=== PATIENT | male | born 1965 | race Caucasian/White ===

== ENCOUNTER 2017-05-21 20:18 | Inpatient (IN) | payer OTHER ==
[~2017-05-21] VITALS: Ht 190.5 cm; Wt 134.3 kg
[2017-05-21 21:12] LABS: HEMATOCRIT 40.7 % (39.2-51.8); WHITE BLOOD COUNT 13.6 x10^3/uL (3.4-10)
[2017-05-21 21:23] LABS: ASPARTATE AMINO TRANSFERASE 33 U/L (15-37); BLOOD UREA NITROGEN 10 mg/dL (7-18)
[2017-05-21] MEDS ORDERED: ONDANSETRON 2MG/ML, 2ML ONE (22:28)
[2017-05-21] MEDS ORDERED: MORPHINE SULFATE 4 MG/ML, 1ML ONE ×2 (22:28→22:46)
[2017-05-21] MEDS ORDERED: PIPERACILLIN/TAZO/PMX 3.375GM 50 ML ONE (22:29)
[2017-05-21] MEDS ORDERED: MORPHINE SULFATE 4 MG/ML, 1ML IVPush PRN (22:30)
[2017-05-21] MEDS ORDERED: SODIUM CHLORIDE 0.9% 1,000ML IVBOLUS ONE (22:30)
[2017-05-21] MEDS ORDERED: ONDANSETRON 2MG/ML, 2ML IVPush ONE (22:30)
[2017-05-21] MEDS ORDERED: AMPICILLIN/SULBACTAM 3 GM in SODIUM CHLORIDE 0.9% 100 ML IV ONE (22:30)
[2017-05-21] MEDS ORDERED: SODIUM CHLORIDE 0.9% 1,000 ML IV ONE (22:41)
[2017-05-21] MEDS ORDERED: SODIUM CHLORIDE FLUSH 10ML SYR IVF PRN (23:00)
[2017-05-22] MEDS ORDERED: ENALAPRILAT 1.25 MG/ML, 2ML IVPush PRN
[2017-05-22] MEDS ORDERED: ONDANSETRON ODT 4 MG PO PRN
[2017-05-22] MEDS ORDERED: DOCUSATE 100 MG CAPSULE PO PRN
[2017-05-22] MEDS ORDERED: TEMAZEPAM 15 MG CAPSULE PO PRN
[2017-05-22] MEDS ORDERED: morphine SULFATE 10 MG/ML, 1ML IVPush PRN
[2017-05-22 00:07] VITALS: BP 150/89
[2017-05-22 00:08] VITALS: BP 150/89
[2017-05-22] MEDS: HYDROcodone/APAP 5/325 TABLET PO PRN ×4 (01:17→21:21)
[2017-05-22] MEDS: ENOXAPARIN 40 MG/0.4 ML SQ SCH ×2 (01:17→23:38)
[2017-05-22 05:09] LABS: HEMATOCRIT 37.9 % (39.2-51.8); HEMOGLOBIN 12.1 g/dL (13.7-18.0); WHITE BLOOD COUNT 14.4 x10^3/uL (3.4-10)
[2017-05-22 05:30] LABS: BLOOD UREA NITROGEN 9 mg/dL (7-18)
[2017-05-22] MEDS: AMPICILLIN/SULBACTAM 3 GM in SODIUM CHLORIDE 0.9% 100 ML IV SCH ×4 (05:35→23:38)
[2017-05-22] MEDS: SODIUM CHLORIDE 0.9% 1,000 ML IV SCH ×2 (05:36→13:28)
[2017-05-22 05:41] VITALS: BP 133/75
[2017-05-22 07:48] VITALS: BP 125/81
[2017-05-22 13:20] VITALS: BP 114/71
[2017-05-22] MEDS ORDERED: VANCOMYCIN PER PHARMACY MC PRN (17:30)
[2017-05-22] MEDS ORDERED: PHARMACOKINETIC MONITORING MC PRN (18:00)
[2017-05-22 19:30] VITALS: BP 112/71
[2017-05-22] MEDS: VANCOMYCIN 2,000 MG in SODIUM CHLORIDE 0.9% 500 ML IV SCH (21:21)
[2017-05-23 03:15] VITALS: BP 127/75
[2017-05-23] MEDS ORDERED: ACETAMINOPHEN 325 MG TABLET PO PRN (04:30)
[2017-05-23 05:06] LABS: HEMOGLOBIN 11.1 g/dL (13.7-18.0); WHITE BLOOD COUNT 9.7 x10^3/uL (3.4-10)
[2017-05-23] MEDS: AMPICILLIN/SULBACTAM 3 GM in SODIUM CHLORIDE 0.9% 100 ML IV SCH ×4 (06:42→22:59)
[2017-05-23] MEDS: SODIUM CHLORIDE 0.9% 1,000 ML IV SCH ×2 (06:43→22:59)
[2017-05-23] MEDS: HYDROcodone/APAP 5/325 TABLET PO PRN ×3 (08:36→20:19)
[2017-05-23] MEDS ORDERED: ASA/APAP/ CAFFEINE TABLET PO PRN (09:30)
[2017-05-23 09:51] VITALS: BP 127/75
[2017-05-23] MEDS: VANCOMYCIN 2,000 MG in SODIUM CHLORIDE 0.9% 500 ML IV SCH (13:56)
[2017-05-23 15:14] VITALS: BP 107/72
[2017-05-23 19:45] VITALS: BP 122/75
[2017-05-23] MEDS: ENOXAPARIN 40 MG/0.4 ML SQ SCH (22:59)
[2017-05-24] MEDS: AMPICILLIN/SULBACTAM 3 GM in SODIUM CHLORIDE 0.9% 100 ML IV SCH ×3 (05:30→17:46)
[2017-05-24] MEDS: VANCOMYCIN 2,000 MG in SODIUM CHLORIDE 0.9% 500 ML IV SCH (09:32)
[2017-05-24] MEDS: HYDROcodone/APAP 5/325 TABLET PO PRN ×2 (10:27→17:33)
[2017-05-24] MEDS: SODIUM CHLORIDE 0.9% 1,000 ML IV SCH (12:52)
[2017-05-24 13:08] VITALS: BP 110/67
[2017-05-24 20:14] VITALS: BP 128/82
[2017-05-24] MEDS: VANCOMYCIN 1,500 MG in SODIUM CHLORIDE 0.9% 250 ML IV SCH (20:23)
[2017-05-25] MEDS: ENOXAPARIN 40 MG/0.4 ML SQ SCH (00:01)
[2017-05-25] MEDS: AMPICILLIN/SULBACTAM 3 GM in SODIUM CHLORIDE 0.9% 100 ML IV SCH ×4 (00:01→20:40)
[2017-05-25] MEDS: HYDROcodone/APAP 5/325 TABLET PO PRN ×4 (00:02→23:01)
[2017-05-25 00:34] VITALS: BP 137/82
[2017-05-25] MEDS: SODIUM CHLORIDE 0.9% 1,000 ML IV SCH ×2 (02:10→10:00)
[2017-05-25 09:08] VITALS: BP 112/71
[2017-05-25] MEDS: VANCOMYCIN 1,500 MG in SODIUM CHLORIDE 0.9% 250 ML IV SCH ×2 (09:20→23:05)
[2017-05-25] MEDS ORDERED: GADOBUTROL 10 MMOL/10 ML PFS ONE (12:11)
[2017-05-25 17:49] VITALS: BP 125/77
[2017-05-25 19:34] VITALS: BP 123/79
[2017-05-25 22:55] VITALS: BP 137/87
[2017-05-26] MEDS: AMPICILLIN/SULBACTAM 3 GM in SODIUM CHLORIDE 0.9% 100 ML IV SCH ×4 (00:43→18:31)
[2017-05-26 02:15] VITALS: BP 127/78
[2017-05-26 04:38] LABS: HEMATOCRIT 33.3 % (39.2-51.8); HEMOGLOBIN 10.4 g/dL (13.7-18.0); WHITE BLOOD COUNT 4.4 x10^3/uL (3.4-10)
[2017-05-26 05:06] LABS: BLOOD UREA NITROGEN 9 mg/dL (7-18)
[2017-05-26 06:51] VITALS: BP 159/94
[2017-05-26] MEDS: HYDROcodone/APAP 5/325 TABLET PO PRN ×2 (07:21→12:12)
[2017-05-26] MEDS: SODIUM CHLORIDE 0.9% 1,000 ML IV SCH ×2 (07:23→18:31)
[2017-05-26] MEDS: VANCOMYCIN 1,500 MG in SODIUM CHLORIDE 0.9% 250 ML IV SCH ×2 (11:51→22:22)
[2017-05-26 13:22] VITALS: BP 144/82
[2017-05-26] MEDS ORDERED: LIDOCAINE/PF 1%, 30ML ONE (16:57)
[2017-05-26] MEDS ORDERED: BUPIVACAINE/PF 0.5% ONE (16:57)
[2017-05-26] MEDS ORDERED: PROPOFOL 10 MG/ML, 50ML ONE (16:58)
[2017-05-26] MEDS ORDERED: METOCLOPRAMIDE 5 MG/ML, 2ML ONE (16:58)
[2017-05-26] MEDS ORDERED: ONDANSETRON 2MG/ML, 2ML ONE (16:58)
[2017-05-26] MEDS ORDERED: FENTANYL PF 100 MCG/2ML ONE ×2 (17:01→18:18)
[2017-05-26] MEDS ORDERED: MIDAZOLAM 1 MG/ML, 2ML ONE (17:01)
[2017-05-26] MEDS ORDERED: hydrALAzine 20 MG/ML, 1ML IV PRN (17:30)
[2017-05-26] MEDS ORDERED: EPHEDRINE 50 MG/ML, 1ML IVPush PRN (17:30)
[2017-05-26] MEDS ORDERED: OXYcodone 5 MG/5 ML ORAL.SOL UDC PO PRN (17:30)
[2017-05-26] MEDS ORDERED: METOPROLOL 1 MG/ML, 5ML IV PRN (17:30)
[2017-05-26] MEDS ORDERED: LABETALOL 5MG/ML, 20ML IV PRN (17:30)
[2017-05-26] MEDS ORDERED: ONDANSETRON 2MG/ML, 2ML IVPush PRN (17:30)
[2017-05-26] MEDS ORDERED: FENTANYL PF 100 MCG/2ML IV PRN (17:30)
[2017-05-26] MEDS ORDERED: ACETAMINOPHEN 325 MG TABLET PO PRN (17:30)
[2017-05-26] MEDS ORDERED: ALBUTEROL SULFATE 2.5 MG/3 ML NPPB PRN (17:30)
[2017-05-26] MEDS ORDERED: HYDROmorphone 1 MG/ML, 1ML IV PRN (17:30)
[2017-05-26] MEDS ORDERED: HYDROcodone/APAP 7.5-325MG/15ML UDC ONE (18:19)
[2017-05-26] MEDS ORDERED: HYDROcodone/APAP 7.5-325MG/15ML UDC PO PRN (18:30)
[2017-05-26 23:49] VITALS: BP 131/50
[2017-05-27] MEDS: AMPICILLIN/SULBACTAM 3 GM in SODIUM CHLORIDE 0.9% 100 ML IV SCH ×4 (00:34→19:51)
[2017-05-27 03:46] VITALS: BP 103/52
[2017-05-27] MEDS: HYDROcodone/APAP 5/325 TABLET PO PRN ×3 (04:27→17:12)
[2017-05-27 05:03] LABS: HEMATOCRIT 35.5 % (39.2-51.8); HEMOGLOBIN 11.3 g/dL (13.7-18.0); WHITE BLOOD COUNT 6.4 x10^3/uL (3.4-10)
[2017-05-27 05:06] LABS: BLOOD UREA NITROGEN 9 mg/dL (7-18)
[2017-05-27 07:50] VITALS: BP 115/65
[2017-05-27] MEDS ORDERED: BISACODYL 10 MG SUPP PR PRN (11:30)
[2017-05-27] MEDS: VANCOMYCIN 1,500 MG in SODIUM CHLORIDE 0.9% 250 ML IV SCH ×2 (11:41→23:24)
[2017-05-27] MEDS: SENNA/DOCUSATE TABLET PO SCH (13:07)
[2017-05-27] MEDS: POLYETHYLENE GLYCOL 17 GM PACKET PO PRN (13:08)
[2017-05-27] MEDS: ENOXAPARIN 40 MG/0.4 ML SQ SCH (13:08)
[2017-05-27 17:02] VITALS: BP 136/56
[2017-05-27 19:57] VITALS: BP 135/76
[2017-05-28 00:50] VITALS: BP 138/81
[2017-05-28] MEDS: AMPICILLIN/SULBACTAM 3 GM in SODIUM CHLORIDE 0.9% 100 ML IV SCH ×4 (01:43→19:31)
[2017-05-28 05:33] LABS: HEMATOCRIT 36.1 % (39.2-51.8); HEMOGLOBIN 11.4 g/dL (13.7-18.0); WHITE BLOOD COUNT 7.2 x10^3/uL (3.4-10)
[2017-05-28 05:39] LABS: BLOOD UREA NITROGEN 12 mg/dL (7-18); TOTAL IRON BINDING CAPACITY 306 mcg/dL (250-450)
[2017-05-28 05:43] LABS: FERRITIN 70.9 ng/mL (26-388); TRANSFERRIN 236 mg/dL (200-360)
[2017-05-28 07:17] VITALS: BP 137/87
[2017-05-28] MEDS: HYDROcodone/APAP 5/325 TABLET PO PRN ×3 (07:30→21:42)
[2017-05-28] MEDS: SENNA/DOCUSATE TABLET PO SCH (10:11)
[2017-05-28] MEDS: VANCOMYCIN 1,500 MG in SODIUM CHLORIDE 0.9% 250 ML IV SCH ×2 (11:50→23:33)
[2017-05-28] MEDS: ENOXAPARIN 40 MG/0.4 ML SQ SCH (13:41)
[2017-05-28 13:48] VITALS: BP 128/87
[2017-05-28] MEDS ORDERED: ENALAPRILAT 1.25 MG/ML, 2ML IVPush PRN (14:30)
[2017-05-28] MEDS ORDERED: PHARMACOKINETIC MONITORING MC PRN (14:30)
[2017-05-28] MEDS ORDERED: BISACODYL 10 MG SUPP PR PRN (14:30)
[2017-05-28] MEDS ORDERED: VANCOMYCIN PER PHARMACY MC PRN (14:30)
[2017-05-28 15:36] LABS: OCCBLD OBC PASS
[2017-05-28] MEDS: FERROUS SULFATE 325 MG TABLET PO SCH (17:21)
[2017-05-28] MEDS: POLYETHYLENE GLYCOL 17 GM PACKET PO PRN (17:21)
[2017-05-28 19:34] VITALS: BP 144/84
[2017-05-29] MEDS: AMPICILLIN/SULBACTAM 3 GM in SODIUM CHLORIDE 0.9% 100 ML IV SCH ×3 (01:53→13:54)
[2017-05-29 03:59] VITALS: BP 127/82
[2017-05-29 06:45] VITALS: BP 126/64
[2017-05-29] MEDS: FERROUS SULFATE 325 MG TABLET PO SCH ×2 (08:31→16:45)
[2017-05-29] MEDS: SENNA/DOCUSATE TABLET PO SCH (08:31)
[2017-05-29] MEDS: HYDROcodone/APAP 5/325 TABLET PO PRN ×2 (08:32→21:04)
[2017-05-29] MEDS: VANCOMYCIN 1,500 MG in SODIUM CHLORIDE 0.9% 250 ML IV SCH (11:34)
[2017-05-29] MEDS: ENOXAPARIN 40 MG/0.4 ML SQ SCH (13:54)
[2017-05-29] MEDS ORDERED: CEFAZOLIN PMX 2GM/100ML 100 ML IV SCH (14:30)
[2017-05-29 15:27] VITALS: BP 129/72
[2017-05-29 17:05] LABS: OCCBLD OBC PASS
[2017-05-29 19:32] VITALS: BP 127/81
[2017-05-29] MEDS ORDERED: BISACODYL 10 MG SUPP PR PRN (20:00)
[2017-05-29] MEDS ORDERED: ACETAMINOPHEN 325 MG TABLET PO PRN (20:00)
[2017-05-29] MEDS ORDERED: ENALAPRILAT 1.25 MG/ML, 2ML IVPush PRN (20:00)
[2017-05-29] MEDS: CEFAZOLIN PMX 2GM/50ML 50 ML IV SCH (23:18)
[2017-05-30 04:00] VITALS: BP 125/82
[2017-05-30 07:30] VITALS: BP 147/98
[2017-05-30 07:52] VITALS: BP 147/98
[2017-05-30] MEDS: SENNA/DOCUSATE TABLET PO SCH (09:27)
[2017-05-30] MEDS: FERROUS SULFATE 325 MG TABLET PO SCH ×2 (09:27→17:41)
[2017-05-30] MEDS: CEFAZOLIN PMX 2GM/50ML 50 ML IV SCH ×2 (09:27→17:41)
[2017-05-30] MEDS: ENOXAPARIN 40 MG/0.4 ML SQ SCH (13:19)
[2017-05-30 13:40] VITALS: BP 132/83
[2017-05-30] MEDS: HYDROcodone/APAP 5/325 TABLET PO PRN (18:48)
[2017-05-30 19:33] VITALS: BP 135/76
[2017-05-31] MEDS: CEFAZOLIN PMX 2GM/50ML 50 ML IV SCH ×2 (01:23→09:34)
[2017-05-31 02:30] VITALS: BP 130/77
[2017-05-31] MEDS: SENNA/DOCUSATE TABLET PO SCH (08:25)
[2017-05-31] MEDS: FERROUS SULFATE 325 MG TABLET PO SCH (08:25)
[2017-05-31 08:38] VITALS: BP 123/79
[2017-05-31] MEDS ORDERED: ERTAPENEM 1 GM in SODIUM CHLORIDE 0.9% 50 ML IV ONE (12:00)
[2017-05-31 13:35] VITALS: BP 120/77
[2017-05-31] MEDS: ENOXAPARIN 40 MG/0.4 ML SQ SCH (15:00)
[2017-05-31] MEDS ORDERED: HYDR-3240 PO (15:04)
== END 2017-05-31 15:45 | disposition home or self-care (01) | DRG 871 ==
LOC: ED 23:10 → EDIP 23:15 → 5SO 05-22 00:39 → 4NOR 05-26 16:42
PROVIDERS: ADMIT Hospitalist; ATTEND Hospitalist
PROC: 0SBG0ZX Excision of Left Ankle Joint, Open Approach, Diagnostic (ICD-10-PCS; principal; 2017-05-26 17:15)
DX: A41.9 Sepsis, unspecified organism (principal); R65.21 Severe sepsis with septic shock; L02.416 Cutaneous abscess of left lower limb; L03.116 Cellulitis of left lower limb; M86.8X7 Other osteomyelitis, ankle and foot; I10 Essential (primary) hypertension; E66.9 Obesity, unspecified; D50.9 Iron deficiency anemia, unspecified; Z96.642 Presence of left artificial hip joint; D53.9 Nutritional anemia, unspecified; G47.33 Obstructive sleep apnea (adult) (pediatric); L03.032 Cellulitis of left toe; Z87.891 Personal history of nicotine dependence; Z91.19 Patient's noncompliance with other medical treatment and regimen; Z68.37 Body mass index [BMI] 37.0-37.9, adult
CPT/HCPCS: 36415; 36569; 76937; 77001; 80048; 80053; 80202; 82272; 82728; 83540; 83550; 83605; 84145; 84466; 84550; 85025; 85610; 85651; 86140; 87040; 87070; 87075; 87077; 87186; 87205; 96365; 96375; A9585; J0295; J0690; J1335; J1650; J2250; J2405; J2704; J3010; J3370; J3490; C1751; J2765; J7030; J7040; J7050

== ENCOUNTER → 2018-04-16 | Outpatient (CLI) | payer OTHER ==
[~2018-04-16] MED LIST: HYDR-3240 PO
== END | disposition home or self-care (01) ==
LOC: CARD 12:04
PROVIDERS: ATTEND Podiatrist Foot & Ankle Surgery
DX: Z01.810 Encounter for preprocedural cardiovascular examination (principal); I10 Essential (primary) hypertension; E11.9 Type 2 diabetes mellitus without complications; R94.31 Abnormal electrocardiogram [ECG] [EKG]
CPT/HCPCS: 93005

== ENCOUNTER 2019-07-18 11:19 | Day surgery (SDC) | payer BC ==
[~2019-07-18] VITALS: Ht 193 cm; Wt 137.0 kg
[~2019-07-18 11:19] MED LIST changes: +CYAN1TAB29 PO
[2019-07-18] MEDS ORDERED: FENTANYL PF 100 MCG/2ML ONE ×2 (11:28→13:17)
[2019-07-18] MEDS ORDERED: MIDAZOLAM 1 MG/ML, 2ML ONE (11:28)
[2019-07-18] MEDS ORDERED: LACTATED RINGERS 1,000 ML IV SCH (11:34)
[2019-07-18 11:49] VITALS: BP 135/91
[2019-07-18] MEDS ORDERED: ACETAMINOPHEN 500 MG TABLET ONE (12:20)
[2019-07-18] MEDS ORDERED: ACETAMINOPHEN 500 MG TABLET PO ONE (12:30)
[2019-07-18] MEDS ORDERED: BUPIVACAINE/PF 0.5% ONE (12:49)
[2019-07-18] MEDS ORDERED: EPINEPHRINE 1 MG/ML, 1ML ONE (12:50)
[2019-07-18] MEDS ORDERED: LIDOCAINE 1%, 20ML ONE (12:50)
[2019-07-18] MEDS ORDERED: DEXAMETHASONE 4 MG/ML, 5ML ONE (12:50)
[2019-07-18] MEDS ORDERED: OXYcodone 5 MG/5 ML ORAL.SOL UDC PO PRN (13:00)
[2019-07-18] MEDS ORDERED: ONDANSETRON 2MG/ML, 2ML IV PRN (13:00)
[2019-07-18] MEDS ORDERED: LORazepam 2 MG/ML, 1ML IVPush PRN (13:00)
[2019-07-18] MEDS ORDERED: FENTANYL PF 100 MCG/2ML IV PRN (13:00)
[2019-07-18] MEDS ORDERED: MEPERIDINE/PF 25MG/ML,1ML IVPush PRN (13:00)
[2019-07-18] MEDS ORDERED: ONDANSETRON ODT 8 MG PO PRN (13:00)
[2019-07-18] MEDS ORDERED: ACETAMINOPHEN 325 MG TABLET PO PRN (13:00)
[2019-07-18] MEDS ORDERED: PROMETHAZINE 25 MG/ML, 1ML IV PRN (13:00)
[2019-07-18] MEDS ORDERED: HYDROmorphone 2 MG/ML, 1ML IVPush PRN (13:00)
[2019-07-18] MEDS ORDERED: PROMETHAZINE 25 MG SUPP PR PRN (13:00)
[2019-07-18] MEDS ORDERED: CEFAZOLIN 1,000 MG ONE (16:12)
[2019-07-18] MEDS ORDERED: DEXAMETHASONE 4 MG/ML, 1ML ONE (16:12)
[2019-07-18] MEDS ORDERED: METOPROLOL 1 MG/ML, 5ML ONE (16:12)
[2019-07-18] MEDS ORDERED: ONDANSETRON 2MG/ML, 2ML ONE (16:12)
[2019-07-18] MEDS ORDERED: PROPOFOL 10 MG/ML, 20ML ONE (16:12)
== END 2019-07-18 17:05 | disposition home or self-care (01) ==
LOC: OUT 11:19
PROVIDERS: ATTEND Podiatrist Foot & Ankle Surgery
DX: M25.372 Other instability, left ankle (principal); M21.6X2 Other acquired deformities of left foot; L97.411 Non-pressure chronic ulcer of right heel and midfoot limited to breakdown of skin; F17.210 Nicotine dependence, cigarettes, uncomplicated; Z79.899 Other long term (current) drug therapy; Z88.8 Allergy status to other drugs, medicaments and biological substances; Z98.890 Other specified postprocedural states
CPT/HCPCS: 27696; 28300; 28306; 64445; 64447; 73650; 73660; C1713; J0171; J0690; J1100; J2250; J2405; J2704; J3010; J7120; 76000